=== PATIENT | male | born 1960 | race Caucasian/White ===

== ENCOUNTER → 2016-11-15 | Outpatient (CLI) | payer BC ==
[2015-12-18 18:15] VITALS: BP 122/84
--- NOTE | 2016-11-15 10:17 | RAD ---
Chest, 2 views, 11/15/2016: History: Chest congestion The heart size and pulmonary vascularity are normal. No pulmonary infiltrates are seen. There is no evidence of pleural fluid. Mild spurring is present in the spine. IMPRESSION: No acute cardiopulmonary abnormality is detected.
== END | disposition home or self-care (01) ==
LOC: DXRADRC 09:55
PROVIDERS: ATTEND Nurse Practitioner Family
DX: R05 Cough (principal); R09.89 Other specified symptoms and signs involving the circulatory and respiratory systems
CPT/HCPCS: 71020

== ENCOUNTER → 2017-01-07 | Outpatient (CLI) | payer BC ==
[2015-12-18 18:15] VITALS: BP 122/84
--- NOTE | 2017-01-07 12:06 | RAD ---
CHEST PA LATERAL Technique: PA and lateral views of the chest were obtained. Clinical History: Brought to [facility] FOR SEVERAL WEEKS Comparison: 11/15/2016. Findings: The heart and pulmonary vasculature appear within normal limits. The lungs are clear. The pleural margins are clear. Impression: No acute chest process is seen.
== END | disposition home or self-care (01) ==
LOC: DXRADRC 11:23
PROVIDERS: ATTEND Nurse Practitioner Family
DX: R05 Cough (principal)
CPT/HCPCS: 71020